=== PATIENT | female | born 1950 | race Caucasian/White ===

== ENCOUNTER 2017-12-20 11:43 | Emergency (ER) | payer MEDICARE, OTHER ==
[2017-12-20 11:55] VITALS: BP 145/54
--- NOTE | 2017-12-20 12:11 | UC ---
Shortness of Breath HPI - HPI Summary HPI Summary: PATIENT ARRIVES COMPLAINING OF INCREASING SHORTNESS OF BREATH AND WHEEZE OVER THE PAST 4 DAYS. SYMPTOMS STARTED ABOUT A WEEK AGO. SHE SAW HER PCP AND WAS PRESCRIBED AMOXICILLIN AND PREDNISONE WHICH SHE HAS BEEN TAKING FOR THE PAST 4 DAYS. TODAY SHE STATES HER SYMPTOMS ARE MUCH WORSE. SHE HAS A HISTORY OF COPD BUT DOES NOT HAVE HOME OXYGEN. STATES HER BASELINE O2 SAT IS ABOUT 94%. SHE ARRIVES TODAY WITH AN O2 SAT OF 85% ON ROOM AIR. SHE IS BREATHING HEAVILY AND IS PRESSURED TO SPEAK FULL SENTENCES. SHE HAS SOME CHEST HEAVINESS BUT DENIES CHEST PAIN, NAUSEA OR FEVER. - History of Current Complaint Chief Complaint: UCRespiratory Stated Complaint: SOB Time Seen by Provider: 12/20/17 11:44 Hx Obtained From: Patient Onset/Duration: Gradual Onset, Lasting Days, Still Present Timing: Constant Current Severity: Moderate Dyspnea At: Rest Aggrevating Factors: Nothing Alleviating Factors: Nothing Associated Signs & Symptoms: Positive: Cough (Productive), Wheezing. Negative: Fever, Chills, Diaphoresis, Nasal Congestion - Allergy/Home Medications Allergies/Adverse Reactions: Allergies Allergy/AdvReac Type Severity Reaction Status Date / Time Sulfa (Sulfonamide Allergy Intermediate Swelling Verified 12/20/17 11:55 Antibiotics) Home Medications: Home Medications Amoxicillin 1 tab PO BID 12/20/17 [History Confirmed 12/20/17] Atorvastatin* [Lipitor 20 MG*] 1 tab PO DAILY 12/20/17 [History Confirmed ] predniSONE TAB* [Deltasone TAB*] 30 mg PO DAILY 12/20/17 [History Confirmed 04/01] PMH/Surg Hx/FS Hx/Imm Hx Endocrine History: Diabetes Respiratory History: COPD - Surgical History Surgical History: Yes Surgery Procedure, Year, and Place: Tonsillectomy (1961) tympanoplasty with - Family History Known Family History: Negative: Hypertension - Social History Alcohol Use: Rare Substance Use Type: None Smoking Status (MU): Heavy Every Day Tobacco Smoker - Immunization History Most Recent Tetanus Shot: UNK Review of Systems Constitutional: Negative Respiratory: Shortness Of Breath, Cough, Other - WHEEZE Cardiovascular: Negative Gastrointestinal: Negative All Other Systems Reviewed And Are Negative: Yes Physical Exam Triage Information Reviewed: Yes Appearance: No Pain Distress, Well-Nourished, Ill-Appearing - BREATHING HEAVILY Vital Signs: Initial Vital Signs Temp 98.2 F 12/20/17 11:45 Pulse 66 12/20/17 11:45 Resp 32 12/20/17 11:45 BP 145/54 12/20/17 11:45 Pulse Ox 95 12/20/17 11:45 Vital Signs Reviewed: Yes Eyes: Positive: Conjunctiva Clear ENT: Positive: Hearing grossly normal Neck: Positive: Supple, Nontender, No Lymphadenopathy Respiratory: Positive: Decreased breath sounds, Accessory muscle use - BREATHING HEAVILY. PRESSURED SPEECH, Wheezing - DIFFUSE. Negative: Respiratory distress Cardiovascular Exam: Normal Abdomen Description: Positive: Soft Musculoskeletal: Positive: No Edema Neurological: Positive: Alert Psychological: Positive: Age Appropriate Behavior Skin: Negative: rashes Shortness of Breath Dx - Course Course Of Treatment: O2 SAT 85% ON ARRIVAL. IMPROVED TO 92% ON 2L BY NC. 95% ON 4L. PT OFFERED TRANSPORT BY AMBULANCE BUT DECLINES. ADVISED THAT BY NOT TRAVELING IN A MONITORED SETTING SHE COULD BE RISKING WORSENING OF HER CONDITION THAT COULD POSE A THREAT TO HER LIFE, HEALTH AND MEDICAL SAFETY. SHE VERBALIZES UNDERSTANDING AND CONTINUES TO DECLINE AMBULANCE TRANSFER. SIGNED OUT AMA. - Differential Dx/Diagnosis Provider Diagnoses: 1. HYPOXIA. 2. COPD EXACERBATION Discharge - Sign-Out/Discharge Documenting (check all that apply): Discharge/Admit/Transfer - Discharge Plan Condition: Guarded Disposition: AGAINST MEDICAL ADVICE Patient Education Materials: COPD (Chronic Obstructive Pulmonary Disease) (ED) , Hypoxia (ED) Referrals: Taylor Smith [Primary Care Provider] - As Soon As Possible Additional Instructions: YOU ARE SIGNING OUT AGAINST MEDICAL ADVICE. I STRONGLY RECOMMEND YOU GO DIRECTLY TO THE [facility] ED FROM HERE FOR FURTHER EVALUATION. YOU HAVE DECLINED AMBULANCE TRANSFER. BE ADVISED THAT BY NOT TRAVELING IN A MONITORED SETTING YOU COULD BE RISKING WORSENING OF YOUR CONDITION THAT COULD POSE A THREAT TO YOUR LIFE, HEALTH AND MEDICAL SAFETY. CONCERN FOR RESPIRATORY DISTRESS/FAILURE, CARDIAC ARREST, /DISABILITY. - Billing Disposition and Condition Condition: GUARDED Disposition: AMA
== END 2017-12-20 12:05 | disposition left against medical advice (07) ==
LOC: UCEAST 11:43
DX: J44.1 Chronic obstructive pulmonary disease with (acute) exacerbation (principal); R09.02 Hypoxemia; E11.9 Type 2 diabetes mellitus without complications; Z79.84 Long term (current) use of oral hypoglycemic drugs; Z88.2 Allergy status to sulfonamides; F17.210 Nicotine dependence, cigarettes, uncomplicated
CPT/HCPCS: 99202; G0463

== ENCOUNTER 2017-12-20 12:32 | Inpatient (IN) | payer MEDICARE, OTHER ==
[2017-12-20] MEDS ORDERED: NS 0.9% 1000 ML*IV.FLUID IV ONE (12:45)
[2017-12-20] MEDS ORDERED: Albuterol/Ipratropium NEB.SOL* Albuterol 2.5 MG/Ipratropium 0.5 MG 3 ML INH ONE (12:46)
[2017-12-20] MEDS ORDERED: methylPREDNISolone 125 MG* 2 ML VIAL IV ONE (13:21)
[2017-12-20] MEDS ORDERED: Azithromycin IV(*) 500 MG in NS 0.9% 250 ML* 250 ML IVPB ONE (13:21)
[2017-12-20] MEDS ORDERED: cefTRIAXone(*) 1 GM in NS 0.9% 50 ML* 50 ML IVPB ONE (13:21)
[2017-12-20 13:24] LABS: ABS Basophils 0 10^3/ul (0-0.2); ABS Eosinophils 0 10^3/ul (0-0.6); ABS Lymphocytes 0.8 10^3/ul (1.0-4.8); ABS Monocytes 0.2 10^3/ul (0-0.8); ABS Neutrophils 8.2 10^3/ul (1.5-7.7); ABS Nucleated RBC 0 10^3/ul; Eosinophil % 0 % (0-6); Hematocrit 41 % (35-47); Hemoglobin 14.2 g/dl (12.0-16.0); Lymphocyte % 9.1 % (25-47); Mean Corpuscular HGB Conc 34 g/dl (31-36); Mean Corpuscular Hemoglobin 33 pg (27-31); Mean Corpuscular Volume 94 fL (80-97); Mean Platelet Volume 9.4 um3 (7.4-10.4); Nucleated Red Blood Cells % 0; Platelet Count 173 10^3/ul (150-450); Red Blood Count 4.36 10^6/ul (4.0-5.4); Red Cell Distribution Width 15 % (10.5-15); White Blood Count 9.3 10^3/ul (3.5-10.8)
--- NOTE | 2017-12-20 13:27 | RAD ---
INDICATION: Shortness of breath. COMPARISON: None. TECHNIQUE: Single AP portable view of the chest was obtained. FINDINGS: Image quality is compromised due to the relative inferiority of a portable chest x-ray. The heart and mediastinum exhibit normal size and contour. There is a mild degree of calcification overlying the arch of the aorta. The lungs are grossly clear. There is no evidence of a large pleural effusion. Visualized bones are normal for the patient's age. IMPRESSION: No radiographic evidence for acute cardiopulmonary abnormality on this portable chest x-ray.
[2017-12-20] MEDS ORDERED: NS 0.9% 1000 ML* 1,000 ML IV ONE (13:29)
[2017-12-20 13:32] LABS: INR 0.93 (0.77-1.02)
[2017-12-20 13:36] LABS: EGFR Non-African American 82.4 (>60)
--- NOTE | 2017-12-20 15:43 | ED ---
Corbin Hobson Stephanie, scribed for Dhiraj Dee MD on 12/20/17 at 1322 . Shortness of Breath - HPI Summary HPI Summary: The pt is a 67 y/o F presenting to the ED with c/o SOB that began 12/15/17. Symptoms include cough, ear congestion and wheezing. She denies LE edema, calf pain and CP. The pt was sent from urgent care with O2 at 82%. She is on day 4 of being treated for URI possible pneumonia with Amoxicillin 875mg and prednisone taper on day 4. Pt does not wear oxygen at home. - History of Current Complaint Chief Complaint: EDShortnessOfBreath Time Seen by Provider: 12/20/17 12:45 Hx Obtained From: Patient Onset/Duration: Gradual Onset, Lasting Days - 5, Still Present Timing: Constant Current Severity: Moderate Aggrevating Factors: Nothing Alleviating Factors: Nothing Associated Signs & Symptoms: Cough (Productive), Wheezing, Nasal Congestion - Allergy/Home Medications Allergies/Adverse Reactions: Allergies Allergy/AdvReac Type Severity Reaction Status Date / Time Sulfa (Sulfonamide Allergy Intermediate Swelling Verified 12/20/17 11:55 Antibiotics) Home Medications: Home Medications Amoxicillin PO (*) [Amoxicillin 875 MG (*)] 875 mg PO BID 12/20/17 [History Confirmed 12/20/17] Aspirin EC TAB* [Ecotrin EC Low Dose 81 MG*] 81 mg PO DAILY 12/20/17 [History Confirmed 12/20/17] Atorvastatin* [Lipitor*] 20 mg PO DAILY 12/20/17 [History Confirmed 12/20/17] Gabapentin CAP(*) [Neurontin 100 mg CAP(*)] 100 - 200 mg PO BEDTIME 12/20/17 [ History Confirmed 12/20/17] metFORMIN* [Glucophage 500 MG TAB *] 500 mg PO BID 12/20/17 [History Confirmed 12/20/17] predniSONE TAB* [Deltasone TAB*] 30 mg PO DAILY 12/20/17 [History Confirmed 04/01] PMH/Surg Hx/FS Hx/Imm Hx Endocrine/Hematology History: Reports: Hx Diabetes Denies: Hx Thyroid Disease Cardiovascular History: Reports: Hx Hypercholesterolemia Denies: Hx Hypertension, Hx Peripheral Vascular Disease Respiratory History: Reports: Hx Chronic Obstructive Pulmonary Disease (COPD) Musculoskeletal History: Denies: Hx Arthritis, Hx Osteoporosis Sensory History: Denies: Hx Cataracts, Hx Contacts or Glasses, Hx Glaucoma Opthamlomology History: Denies: Hx Cataracts, Hx Contacts or Glasses, Hx Glaucoma Neurological History: Denies: Hx Headaches, Hx Seizures, Hx Transient Ischemic Attacks (TIA) Psychiatric History: Denies: Hx Anxiety, Hx Depression - Surgical History Surgery Procedure, Year, and Place: Tonsillectomy (1961) tympanoplasty with Infectious Disease History: No Infectious Disease History: Denies: Traveled Outside the [place] in Last 30 Days - Family History Known Family History: Negative: Hypertension - Social History Occupation: Employed Part-time Lives: With Family Alcohol Use: Rare Hx Substance Use: No Substance Use Type: Reports: None Hx Tobacco Use: Yes - 1 pack a day Smoking Status (MU): Heavy Every Day Tobacco Smoker Have You Smoked in the Last Year: Yes Review of Systems Negative: Fever Positive: Other - ear congestion Negative: Chest Pain Positive: Shortness Of Breath, Cough, Other - wheezing Musculoskeletal: Negative - calf pain Negative: Edema - LE All Other Systems Reviewed And Are Negative: Yes Physical Exam - Summary Physical Exam Summary: General: well-appearing, no pain distress Skin: warm, color reflects adequate perfusion, dry Head: normal Eyes: EOMI, STEPH ENT: normal Neck: supple, nontender Respiratory: bilateral rhonchi, Mild respiratory distress, breath sounds present Cardiovascular: RRR Abdomen: soft, nontender Bowel: present Musculoskeletal: normal, strength/ROM intact Neurological: normal, sensory/motor intact, A&O x3 Psychological: affect/mood appropriate Triage Information Reviewed: Yes Vital Signs On Initial Exam: Initial Vitals Temp Pulse Resp BP Pulse Ox 98.3 F 69 24 131/58 82 12/20/17 12:41 12/20/17 12:41 12/20/17 12:41 12/20/17 12:41 12/20/17 12:41 Vital Signs Reviewed: Yes Diagnostics - Vital Signs Vital Signs Temp Pulse Resp BP Pulse Ox 12/20/17 12:55 71 10 98 12/20/17 12:41 98.3 F 69 24 131/58 82 - Laboratory Lab Results: Lab Results 12/20/17 12/20/17 12/20/17 Range/Units 13:04 13:04 13:04 WBC 9.3 (3.5-10.8) 10^3/ul RBC 4.36 (4.0-5.4) 10^6/ul Hgb 14.2 (12.0-16.0) g/dl Hct 41 (35-47) % MCV 94 (80-97) fL MCH 33 H (27-31) pg MCHC 34 (31-36) g/dl RDW 15 (10.5-15) % Plt Count 173 (150-450) 10^3/ul MPV 9.4 (7.4-10.4) um3 Neut % (Auto) 88.6 H (38-83) % Lymph % (Auto) 9.1 L (25-47) % [place] % (Auto) 2.1 (0-7) % Eos % (Auto) 0 (0-6) % Baso % (Auto) 0.2 (0-2) % Absolute Neuts (auto) 8.2 H (1.5-7.7) 10^3/ul Absolute Lymphs (auto) 0.8 L (1.0-4.8) 10^3/ul Absolute Monos (auto) 0.2 (0-0.8) 10^3/ul Absolute Eos (auto) 0 (0-0.6) 10^3/ul Absolute Basos (auto) 0 (0-0.2) 10^3/ul Absolute Nucleated RBC 0 10^3/ul Nucleated RBC % 0 INR (Anticoag Therapy) 0.93 (0.77-1.02) APTT 34.7 (26.0-36.3) seconds D-Dimer, Quantitative < 200 (Less Than 230) ng/mL VBG pH (7.33-7.43) VBG pCO2 (41-51) mmHg VBG pO2 (35-45) mmHg VBG HCO3 (24-28) mmol/L VBG O2 Saturation (70-80) % VBG Base Excess (0-4) Sodium 144 (139-145) mmol/L Potassium 3.8 (3.5-5.0) mmol/L Chloride 107 (101-111) mmol/L Carbon Dioxide 28 (22-32) mmol/L Anion Gap 9 (2-11) mmol/L BUN 11 (6-24) mg/dL Creatinine 0.71 (0.51-0.95) mg/dL Est GFR ( Amer) 105.9 (>60) Est GFR (Non-Af Amer) 82.4 (>60) BUN/Creatinine Ratio 15.5 (8-20) Glucose 123 H (70-100) mg/dL Lactic Acid (0.5-2.0) mmol/L Calcium 9.2 (8.6-10.3) mg/dL Magnesium 1.8 L (1.9-2.7) mg/dL Total Bilirubin 0.60 (0.2-1.0) mg/dL AST 19 (13-39) U/L ALT 20 (7-52) U/L Alkaline Phosphatase 70 (34-104) U/L Troponin I 0.00 (<0.04) ng/mL C-Reactive Protein 3.99 (< 5.00) mg/L B-Natriuretic Peptide ( - 100) pg/mL Total Protein 7.0 (6.4-8.9) g/dL Albumin 4.2 (3.2-5.2) g/dL Globulin 2.8 (2-4) g/dL Albumin/Globulin Ratio 1.5 (1-3) Lipase 12 (11.0-82.0) U/L Procalcitonin (<0.6) ng/mL 12/20/17 12/20/17 12/20/17 Range/Units 13:04 13:04 13:04 WBC (3.5-10.8) 10^3/ul RBC (4.0-5.4) 10^6/ul Hgb (12.0-16.0) g/dl Hct (35-47) % MCV (80-97) fL MCH (27-31) pg MCHC (31-36) g/dl RDW (10.5-15) % Plt Count (150-450) 10^3/ul MPV (7.4-10.4) um3 Neut % (Auto) (38-83) % Lymph % (Auto) (25-47) % Gree[place] % (Auto) (0-7) % Eos % (Auto) (0-6) % Baso % (Auto) (0-2) % Absolute Neuts (auto) (1.5-7.7) 10^3/ul Absolute Lymphs (auto) (1.0-4.8) 10^3/ul Absolute Monos (auto) (0-0.8) 10^3/ul Absolute Eos (auto) (0-0.6) 10^3/ul Absolute Basos (auto) (0-0.2) 10^3/ul Absolute Nucleated RBC 10^3/ul Nucleated RBC % INR (Anticoag Therapy) (0.77-1.02) APTT (26.0-36.3) seconds D-Dimer, Quantitative (Less Than 230) ng/mL VBG pH (7.33-7.43) VBG pCO2 (41-51) mmHg VBG pO2 (35-45) mmHg VBG HCO3 (24-28) mmol/L VBG O2 Saturation (70-80) % VBG Base Excess (0-4) Sodium (139-145) mmol/L Potassium (3.5-5.0) mmol/L Chloride (101-111) mmol/L Carbon Dioxide (22-32) mmol/L Anion Gap (2-11) mmol/L BUN (6-24) mg/dL Creatinine (0.51-0.95) mg/dL Est GFR ( Amer) (>60) Est GFR (Non-Af Amer) (>60) BUN/Creatinine Ratio (8-20) Glucose (70-100) mg/dL Lactic Acid 1.3 (0.5-2.0) mmol/L Calcium (8.6-10.3) mg/dL Magnesium (1.9-2.7) mg/dL Total Bilirubin (0.2-1.0) mg/dL AST (13-39) U/L ALT (7-52) U/L Alkaline Phosphatase (34-104) U/L Troponin I (<0.04) ng/mL C-Reactive Protein (< 5.00) mg/L B-Natriuretic Peptide 82 ( - 100) pg/mL Total Protein (6.4-8.9) g/dL Albumin (3.2-5.2) g/dL Globulin (2-4) g/dL Albumin/Globulin Ratio (1-3) Lipase (11.0-82.0) U/L Procalcitonin < 0.1 (<0.6) ng/mL 12/20/17 Range/Units 13:07 WBC (3.5-10.8) 10^3/ul RBC (4.0-5.4) 10^6/ul Hgb (12.0-16.0) g/dl Hct (35-47) % MCV (80-97) fL MCH (27-31) pg MCHC (31-36) g/dl RDW (10.5-15) % Plt Count (150-450) 10^3/ul MPV (7.4-10.4) um3 Neut % (Auto) (38-83) % Lymph % (Auto) (25-47) % Gree[place] % (Auto) (0-7) % Eos % (Auto) (0-6) % Baso % (Auto) (0-2) % Absolute Neuts (auto) (1.5-7.7) 10^3/ul Absolute Lymphs (auto) (1.0-4.8) 10^3/ul Absolute Monos (auto) (0-0.8) 10^3/ul Absolute Eos (auto) (0-0.6) 10^3/ul Absolute Basos (auto) (0-0.2) 10^3/ul Absolute Nucleated RBC 10^3/ul Nucleated RBC % INR (Anticoag Therapy) (0.77-1.02) APTT (26.0-36.3) seconds D-Dimer, Quantitative (Less Than 230) ng/mL VBG pH 7.35 (7.33-7.43) VBG pCO2 52 H (41-51) mmHg VBG pO2 26 L (35-45) mmHg VBG HCO3 25.2 (24-28) mmol/L VBG O2 Saturation 57.8 L (70-80) % VBG Base Excess 2.0 (0-4) Sodium (139-145) mmol/L Potassium (3.5-5.0) mmol/L Chloride (101-111) mmol/L Carbon Dioxide (22-32) mmol/L Anion Gap (2-11) mmol/L BUN (6-24) mg/dL Creatinine (0.51-0.95) mg/dL Est GFR ( Amer) (>60) Est GFR (Non-Af Amer) (>60) BUN/Creatinine Ratio (8-20) Glucose (70-100) mg/dL Lactic Acid (0.5-2.0) mmol/L Calcium (8.6-10.3) mg/dL Magnesium (1.9-2.7) mg/dL Total Bilirubin (0.2-1.0) mg/dL AST (13-39) U/L ALT (7-52) U/L Alkaline Phosphatase (34-104) U/L Troponin I (<0.04) ng/mL C-Reactive Protein (< 5.00) mg/L B-Natriuretic Peptide ( - 100) pg/mL Total Protein (6.4-8.9) g/dL Albumin (3.2-5.2) g/dL Globulin (2-4) g/dL Albumin/Globulin Ratio (1-3) Lipase (11.0-82.0) U/L Procalcitonin (<0.6) ng/mL Result Diagrams: 12/20/17 13:04 12/20/17 13:04 Lab Statement: Any lab studies that have been ordered have been reviewed, and results considered in the medical decision making process. - Radiology CXR Xray Interpretation: No Acute Changes Radiology Interpretation Completed By: Radiologist - No radiographic evidence for acute cardiopulmonary abnormality on this portable chest x-ray. ED physician has reviewed this report. - EKG 12:53 Cardiac Rate: NL EKG Rhythm: Sinus Rhythm - 64 BPM EKG Interpretation: depressed ST elevations in V5, V6 Re-Evaluation - Re-Evaluation First Eval Re-Evaluation Time: 14:42 Change: Unchanged - ED physician discussed plan of admission with the pt and the pt understands. Course/Dx - Course Course Of Treatment: PATIENT STILL REQUIRING SUPPLEMENTAL O2 IN ED. ADMIT HOSPITALIST. - Diagnoses Provider Diagnoses: COPD (chronic obstructive pulmonary disease), Bronchitis, Hypoxia - Physician Notifications Discussed Care of Patient With: Alma Rosa Walker Time Discussed With Above Provider: 14:34 Instructed by Provider To: Admit As Inpatient Discharge - Sign-Out/Discharge Documenting (check all that apply): Discharge/Admit/Transfer - Discharge Plan Condition: Stable Disposition: ADMITTED TO [facility] Referrals: Taylor Smith [Primary Care Provider] - - Billing Disposition and Condition Condition: STABLE Disposition: [facility] The documentation as recorded by the Corbin ross Stephanie accurately reflects the service I personally performed and the decisions made by , Dhiraj Dee MD.
[2017-12-20] MEDS ORDERED: Al Hydrox/Mg Hydrox/Simet LIQ* 30 ML UDC PO PRN (16:14)
[2017-12-20] MEDS ORDERED: Dextrose 50% Syringe 50 ML* 25 GM/50 ML SYRINGE IV PUSH PRN (16:32)
[2017-12-20] MEDS ORDERED: Mouth Piece, Nicotine* 1 EACH CARTRIDGE INH PRN (16:40)
[2017-12-20] MEDS: Insulin LISPRO* 1 UNITS UNIT SUBCUT SCH ×2 (18:11→20:19)
[2017-12-20] MEDS: Gabapentin CAP(*) 100 MG PO SCH (20:18)
[2017-12-20] MEDS: Nicotine Inhaler* 10 MG AMP INH PRN (20:19)
[2017-12-20] MEDS: Docusate CAP* 100 MG PO SCH (20:20)
--- NOTE | 2017-12-20 21:57 | HP ---
CC: Taylor Smith NP * HISTORY AND PHYSICAL: DATE OF ADMISSION: 12/20/17 PRIMARY CARE PROVIDER: Taylor Smith NP CHIEF COMPLAINT: Shortness of breath. HISTORY OF PRESENT ILLNESS: Talya Quiles is a 67-year-old female with history of COPD diagnosed by her primary care provider 2 years ago, who stated that she has been having problems with sore throat and cough for the past week. Four days ago, she went to see her primary care provider and was given amoxicillin and prednisone. Despite that, she continued to be short of breath and she came into the hospital today with oxygen saturation at 82% on room air. She is going to be admitted with a diagnosis of acute hypoxemic respiratory failure and COPD exacerbation. PAST MEDICAL HISTORY: 1. COPD, not oxygen dependent. 2. Dyslipidemia. 3. History of tonsillectomy. 4. History of tympanoplasty. 5. Diabetes type 2. CURRENT MEDICATIONS: Include: 1. Prednisone 30 mg daily. 2. Amoxicillin 875 mg b.i.d. 3. Lipitor 20 mg daily. 4. Aspirin 81 mg daily. 5. Metformin 500 mg b.i.d. 6. Gabapentin 200 mg at bedtime. ALLERGIES: SULFA. FAMILY HISTORY: Reviewed and noncontributory. SOCIAL HISTORY: The patient is a current smoker. She smokes a pack per day and she started when she was 17 years old. She denies any drug use and alcohol use. She is single. 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 As a surrogate decision maker, she names her son, Dakota Quiles. REVIEW OF SYSTEMS: Positive for sore throat. Positive for nonproductive cough. Positive for sore muscles on the left side of her abdomen from coughing. Positive for shortness of breath and wheezing. Negative for fevers. All the remaining 12 systems were reviewed with the patient and were otherwise negative. PHYSICAL EXAMINATION GENERAL: The patient is a very pleasant 67-year-old female, who is in no acute distress. Alert, awake, and oriented x3. VITAL SIGNS: Blood pressure of 143/65, heart rate of 64 and regular, respiratory rate 21, oxygen saturation 92% on 2 L oxygen nasal cannula, temperature of 98.3. HEENT: Head: Atraumatic, normocephalic. Eyes: Pupils are equal, reactive to light and accommodation. Oropharynx clear. Mucosa moist. NECK: Supple. No JVD. No bruits bilaterally. RESPIRATORY: Distant breath sounds bilaterally in the upper lung weaver. Coarse rhonchi and wheezes about the lower and mid lung weaver. CARDIOVASCULAR: Regular rate and rhythm. No murmur. ABDOMEN: Soft, nontender. Bowel sounds are present in all 4 quadrants. EXTREMITIES: There is no edema. Pulses are +2 bilaterally. No clubbing or cyanosis. NEURO EVALUATION: Speech is clear. Cranial nerves II through XII are grossly intact. Motor strength is 5/5 bilaterally. DIAGNOSTIC STUDIES/LAB DATA: White blood cell count of 9.3, hemoglobin 14.2, hematocrit 41, and platelets 173. D-dimer below 200. ABG showed pH of 7.35, pCO2 of 52, pO2 of 26, that was venous blood gas, and bicarb of 25. Sodium was 144, potassium 3.8, chloride 107, carbon dioxide 28, BUN 11, creatinine 0.71. Liver function tests were unremarkable. Procalcitonin level below 0.1. Brain natriuretic peptide was 82. C-reactive protein was 3.99. Troponin 0. Portable chest x-ray, impression: "No radiographic evidence for acute cardiopulmonary abnormality on this portable chest x-ray." The patient's EKG showed normal sinus rhythm with a heart rate of 64 beats per minute with left anterior fascicular block. ASSESSMENT AND PLAN: 1. Acute hypoxemic respiratory failure in a patient due to chronic obstructive pulmonary disease exacerbation. The patient is going to be continued on nebulizers on a p.r.n. basis. I will discontinue the patient's antibiotics since her procalcitonin level and inflammatory markers are negative. She is going to be continued on Solu-Medrol and observation overnight. I will ask nursing to evaluate the patient's oxygenation and saturations and to qualify for oxygen, although I believe the patient's venous blood gas may be a good indicator of significant hypoxemia and qualification for oxygen at home. 2. In regards to the patient's smoking cessation, she was counseled in regards to quitting smoking. She is going to be placed on nicotine inhaler p.r.n. 3. For the patient's diabetes, the patient is going to be placed on insulin sliding scale. Her metformin is going to be held while in the hospital. 4. For DVT prophylaxis, the patient is going to be placed on heparin subcutaneously. TIME SPENT: Approximately 65 minutes were spent on admission of this patient, more than half of that time was spent [id number] with the patient during the interview and physical exam. [id number]/[facility] #: [id number] [facility]
[2017-12-20] MEDS: Heparin VIAL(*) 5000 UNITS/ML VIAL (FIVE THOUSAND) SUBCUT SCH (22:07)
[2017-12-20] MEDS: methylPREDNISolone SOD 40 MG* 1 ML VIAL IV SCH (22:08)
[2017-12-21] MEDS: Albuterol/Ipratropium NEB.SOL* Albuterol 2.5 MG/Ipratropium 0.5 MG 3 ML INH PRN ×2 (02:07→08:43)
[2017-12-21] MEDS: methylPREDNISolone SOD 40 MG* 1 ML VIAL IV SCH ×3 (05:34→20:34)
[2017-12-21] MEDS: Heparin VIAL(*) 5000 UNITS/ML VIAL (FIVE THOUSAND) SUBCUT SCH ×3 (05:34→20:34)
[2017-12-21] MEDS: Insulin LISPRO* 1 UNITS UNIT SUBCUT SCH ×4 (09:07→20:34)
[2017-12-21] MEDS: Aspirin EC TAB* 81 MG TAB.EC PO SCH (09:07)
[2017-12-21] MEDS: Atorvastatin* 20 MG TAB PO SCH (09:07)
[2017-12-21] MEDS: Docusate CAP* 100 MG PO SCH ×2 (09:08→20:25)
[2017-12-21] MEDS: Acetaminophen TAB* 325 MG PO PRN ×2 (09:18→23:30)
--- NOTE | 2017-12-21 13:25 | PN ---
Subjective Date of Service: 12/21/17 Interval History: Pt is still coughing a lot , with increased WOB when going to bathroom. cough is non productive. Also c/o sore throat. Objective Active Medications: Acetaminophen (Tylenol Tab*) 650 mg PO Q4H PRN PRN Reason: FEVER/PAIN Last Admin: 12/21/17 09:18 Dose: 650 mg Al Hydrox/Mg Hydrox/Simethicone (Maalox Plus*) 30 ml PO Q6H PRN PRN Reason: INDIGESTION Albuterol/Ipratropium (Duoneb (Albuterol 2.5 Mg/Ipratropium 0.5 Mg)) 1 neb INH [id number] AWAKE PRN PRN Reason: sob/wheexing Last Admin: 12/21/17 08:43 Dose: 1 neb Aspirin (Aspirin Ec Tab*) 81 mg PO DAILY [facility] Last Admin: 12/21/17 09:07 Dose: 81 mg Atorvastatin Calcium (Lipitor*) 20 mg PO DAILY [facility] Last Admin: 12/21/17 09:07 Dose: 20 mg Device (Nicotine Mouth Piece*) 1 each INH .USE WITH NICOTROL PRN PRN Reason: CRAVING Last Admin: 12/20/17 20:18 Dose: 1 each Dextrose (D50w Syringe 50 Ml*) 12.5 gm IV PUSH .FOR FS < 60 - SS PRN PRN Reason: FS < 60 Docusate Sodium (Colace Cap*) 100 mg PO BID [facility] Last Admin: 12/21/17 09:08 Dose: Not Given Gabapentin (Neurontin Cap(*)) 200 mg PO BEDTIME [facility] Last Admin: 12/20/17 20:18 Dose: 200 mg Heparin Sodium (Porcine) (Heparin Vial(*)) 5,000 units SUBCUT Q8HR [facility] Last Admin: 12/21/17 13:11 Dose: 5,000 units Insulin Human Lispro (Humalog*) 0 units SUBCUT ACHS [facility] PRN Reason: Protocol Last Admin: 12/21/17 13:08 Dose: 1 units Methylprednisolone Sodium Succinate (Solu-Medrol 40 Mg) 40 mg IV Q8H [facility] Last Admin: 12/21/17 13:09 Dose: 40 mg Nicotine (Nicotine Inhaler*) 10 mg INH Q2H PRN PRN Reason: CRAVING Last Admin: 12/20/17 20:19 Dose: 10 mg Vital Signs - 8 hr 12/21/17 12/21/17 12/21/17 07:42 08:01 08:44 Temperature 98.3 F Pulse Rate 57 57 Respiratory 18 19 Rate Blood Pressure 137/55 (mmHg) O2 Sat by Pulse 92 92 97 Oximetry 12/21/17 11:14 Temperature 97.9 F Pulse Rate 57 Respiratory 15 Rate Blood Pressure 142/55 (mmHg) O2 Sat by Pulse 94 Oximetry Oxygen Devices in Use Now: Nasal Cannula Appearance: 67 yo f in nAD, AAOx3 Eyes: No Scleral Icterus, PERRLA Ears/Nose/Mouth/Throat: NL Teeth, Lips, Gums, Mucous Membranes Moist, - Neck: NL Appearance and Movements; NL JVP, Trachea Midline Respiratory: Symmetrical Chest Expansion and Respiratory Effort, - - coarse rhonchi and mid lung wheezes b/l Cardiovascular: NL Sounds; No Murmurs; No JVD Abdominal: NL Sounds; No Tenderness; No Distention Lymphatic: No Cervical Adenopathy Extremities: No Edema, No Clubbing, Cyanosis Skin: No Rash or Ulcers, No Nodules or Sclerosis Neurological: Alert and Oriented x 3, NL Muscle Strength and Tone Result Diagrams: 12/20/17 13:04 12/20/17 13:04 Additional Lab and Data: Lab Results 12/20/17 12/20/17 12/20/17 Range/Units 13:04 13:04 13:04 WBC 9.3 (3.5-10.8) 10^3/ul RBC 4.36 (4.0-5.4) 10^6/ul Hgb 14.2 (12.0-16.0) g/dl Hct 41 (35-47) % MCV 94 (80-97) fL MCH 33 H (27-31) pg MCHC 34 (31-36) g/dl RDW 15 (10.5-15) % Plt Count 173 (150-450) 10^3/ul MPV 9.4 (7.4-10.4) um3 Neut % (Auto) 88.6 H (38-83) % Lymph % (Auto) 9.1 L (25-47) % [place] % (Auto) 2.1 (0-7) % Eos % (Auto) 0 (0-6) % Baso % (Auto) 0.2 (0-2) % Absolute Neuts (auto) 8.2 H (1.5-7.7) 10^3/ul Absolute Lymphs (auto) 0.8 L (1.0-4.8) 10^3/ul Absolute Monos (auto) 0.2 (0-0.8) 10^3/ul Absolute Eos (auto) 0 (0-0.6) 10^3/ul Absolute Basos (auto) 0 (0-0.2) 10^3/ul Absolute Nucleated RBC 0 10^3/ul Nucleated RBC % 0 INR (Anticoag Therapy) 0.93 (0.77-1.02) APTT 34.7 (26.0-36.3) seconds D-Dimer, Quantitative < 200 (Less Than 230) ng/mL VBG pH (7.33-7.43) VBG pCO2 (41-51) mmHg VBG pO2 (35-45) mmHg VBG HCO3 (24-28) mmol/L VBG O2 Saturation (70-80) % VBG Base Excess (0-4) Sodium 144 (139-145) mmol/L Potassium 3.8 (3.5-5.0) mmol/L Chloride 107 (101-111) mmol/L Carbon Dioxide 28 (22-32) mmol/L Anion Gap 9 (2-11) mmol/L BUN 11 (6-24) mg/dL Creatinine 0.71 (0.51-0.95) mg/dL Est GFR ( Amer) 105.9 (>60) Est GFR (Non-Af Amer) 82.4 (>60) BUN/Creatinine Ratio 15.5 (8-20) Glucose 123 H (70-100) mg/dL Lactic Acid (0.5-2.0) mmol/L Calcium 9.2 (8.6-10.3) mg/dL Magnesium 1.8 L (1.9-2.7) mg/dL Total Bilirubin 0.60 (0.2-1.0) mg/dL AST 19 (13-39) U/L ALT 20 (7-52) U/L Alkaline Phosphatase 70 (34-104) U/L Troponin I 0.00 (<0.04) ng/mL C-Reactive Protein 3.99 (< 5.00) mg/L B-Natriuretic Peptide ( - 100) pg/mL Total Protein 7.0 (6.4-8.9) g/dL Albumin 4.2 (3.2-5.2) g/dL Globulin 2.8 (2-4) g/dL Albumin/Globulin Ratio 1.5 (1-3) Lipase 12 (11.0-82.0) U/L Procalcitonin (<0.6) ng/mL 12/20/17 12/20/17 12/20/17 Range/Units 13:04 13:04 13:04 WBC (3.5-10.8) 10^3/ul RBC (4.0-5.4) 10^6/ul Hgb (12.0-16.0) g/dl Hct (35-47) % MCV (80-97) fL MCH (27-31) pg MCHC (31-36) g/dl RDW (10.5-15) % Plt Count (150-450) 10^3/ul MPV (7.4-10.4) um3 Neut % (Auto) (38-83) % Lymph % (Auto) (25-47) % [place] % (Auto) (0-7) % Eos % (Auto) (0-6) % Baso % (Auto) (0-2) % Absolute Neuts (auto) (1.5-7.7) 10^3/ul Absolute Lymphs (auto) (1.0-4.8) 10^3/ul Absolute Monos (auto) (0-0.8) 10^3/ul Absolute Eos (auto) (0-0.6) 10^3/ul Absolute Basos (auto) (0-0.2) 10^3/ul Absolute Nucleated RBC 10^3/ul Nucleated RBC % INR (Anticoag Therapy) (0.77-1.02) APTT (26.0-36.3) seconds D-Dimer, Quantitative (Less Than 230) ng/mL VBG pH (7.33-7.43) VBG pCO2 (41-51) mmHg VBG pO2 (35-45) mmHg VBG HCO3 (24-28) mmol/L VBG O2 Saturation (70-80) % VBG Base Excess (0-4) Sodium (139-145) mmol/L Potassium (3.5-5.0) mmol/L Chloride (101-111) mmol/L Carbon Dioxide (22-32) mmol/L Anion Gap (2-11) mmol/L BUN (6-24) mg/dL Creatinine (0.51-0.95) mg/dL Est GFR ( Amer) (>60) Est GFR (Non-Af Amer) (>60) BUN/Creatinine Ratio (8-20) Glucose (70-100) mg/dL Lactic Acid 1.3 (0.5-2.0) mmol/L Calcium (8.6-10.3) mg/dL Magnesium (1.9-2.7) mg/dL Total Bilirubin (0.2-1.0) mg/dL AST (13-39) U/L ALT (7-52) U/L Alkaline Phosphatase (34-104) U/L Troponin I (<0.04) ng/mL C-Reactive Protein (< 5.00) mg/L B-Natriuretic Peptide 82 ( - 100) pg/mL Total Protein (6.4-8.9) g/dL Albumin (3.2-5.2) g/dL Globulin (2-4) g/dL Albumin/Globulin Ratio (1-3) Lipase (11.0-82.0) U/L Procalcitonin < 0.1 (<0.6) ng/mL 12/20/17 Range/Units 13:07 WBC (3.5-10.8) 10^3/ul RBC (4.0-5.4) 10^6/ul Hgb (12.0-16.0) g/dl Hct (35-47) % MCV (80-97) fL MCH (27-31) pg MCHC (31-36) g/dl RDW (10.5-15) % Plt Count (150-450) 10^3/ul MPV (7.4-10.4) um3 Neut % (Auto) (38-83) % Lymph % (Auto) (25-47) % [place] % (Auto) (0-7) % Eos % (Auto) (0-6) % Baso % (Auto) (0-2) % Absolute Neuts (auto) (1.5-7.7) 10^3/ul Absolute Lymphs (auto) (1.0-4.8) 10^3/ul Absolute Monos (auto) (0-0.8) 10^3/ul Absolute Eos (auto) (0-0.6) 10^3/ul Absolute Basos (auto) (0-0.2) 10^3/ul Absolute Nucleated RBC 10^3/ul Nucleated RBC % INR (Anticoag Therapy) (0.77-1.02) APTT (26.0-36.3) seconds D-Dimer, Quantitative (Less Than 230) ng/mL VBG pH 7.35 (7.33-7.43) VBG pCO2 52 H (41-51) mmHg VBG pO2 26 L (35-45) mmHg VBG HCO3 25.2 (24-28) mmol/L VBG O2 Saturation 57.8 L (70-80) % VBG Base Excess 2.0 (0-4) Sodium (139-145) mmol/L Potassium (3.5-5.0) mmol/L Chloride (101-111) mmol/L Carbon Dioxide (22-32) mmol/L Anion Gap (2-11) mmol/L BUN (6-24) mg/dL Creatinine (0.51-0.95) mg/dL Est GFR ( Amer) (>60) Est GFR (Non-Af Amer) (>60) BUN/Creatinine Ratio (8-20) Glucose (70-100) mg/dL Lactic Acid (0.5-2.0) mmol/L Calcium (8.6-10.3) mg/dL Magnesium (1.9-2.7) mg/dL Total Bilirubin (0.2-1.0) mg/dL AST (13-39) U/L ALT (7-52) U/L Alkaline Phosphatase (34-104) U/L Troponin I (<0.04) ng/mL C-Reactive Protein (< 5.00) mg/L B-Natriuretic Peptide ( - 100) pg/mL Total Protein (6.4-8.9) g/dL Albumin (3.2-5.2) g/dL Globulin (2-4) g/dL Albumin/Globulin Ratio (1-3) Lipase (11.0-82.0) U/L Procalcitonin (<0.6) ng/mL Assess/Plan/Problems-Billing Assessment: 67 yo F with h/o DM, COPD presents with exacerbation of COPD - Patient Problems (1) COPD exacerbation Comment: Still with significant hypoxemia, increased WOB. solange cont current dose Solu Medrol. Start Azithro for anti-inflammatory properties (2) DM type 2 (diabetes mellitus, type 2) Comment: cont ISS, holding metformin. (3) DVT (deep venous thrombosis) Comment: HSQ Status and Disposition: OBV will be changed to inpatient
[2017-12-21] MEDS: Azithromycin IV(*) 500 MG in NS 0.9% 250 ML* 250 ML IVPB SCH (14:15)
[2017-12-21] MEDS: Nicotine Inhaler* 10 MG AMP INH PRN (14:19)
[2017-12-21] MEDS: Albuterol/Ipratropium NEB.SOL* Albuterol 2.5 MG/Ipratropium 0.5 MG 3 ML INH SCH (17:54)
[2017-12-21] MEDS: Gabapentin CAP(*) 100 MG PO SCH (20:34)
[2017-12-21] MEDS: guaiFENesin ER TAB 600 MG PO SCH (20:34)
[2017-12-21] MEDS ORDERED: Albuterol 2.5 MG/3 ML NEB.SOL* (0.083%) INH PRN (22:18)
[2017-12-22] MEDS: Albuterol/Ipratropium NEB.SOL* Albuterol 2.5 MG/Ipratropium 0.5 MG 3 ML INH SCH ×2 (01:54→07:53)
[2017-12-22] MEDS: methylPREDNISolone SOD 40 MG* 1 ML VIAL IV SCH (05:15)
[2017-12-22] MEDS: Benzonatate CAP* 100 MG PO PRN ×2 (05:15→20:22)
[2017-12-22] MEDS: Heparin VIAL(*) 5000 UNITS/ML VIAL (FIVE THOUSAND) SUBCUT SCH ×3 (05:17→20:22)
[2017-12-22 06:48] LABS: ABS Basophils 0 10^3/ul (0-0.2); ABS Eosinophils 0 10^3/ul (0-0.6); ABS Lymphocytes 1.1 10^3/ul (1.0-4.8); ABS Monocytes 0.3 10^3/ul (0-0.8); ABS Neutrophils 10.2 10^3/ul (1.5-7.7); ABS Nucleated RBC 0 10^3/ul; Eosinophil % 0 % (0-6); Hematocrit 38 % (35-47); Hemoglobin 12.8 g/dl (12.0-16.0); Lymphocyte % 9.6 % (25-47); Mean Corpuscular HGB Conc 34 g/dl (31-36); Mean Corpuscular Hemoglobin 32 pg (27-31); Mean Corpuscular Volume 94 fL (80-97); Mean Platelet Volume 9.6 um3 (7.4-10.4); Nucleated Red Blood Cells % 0; Platelet Count 187 10^3/ul (150-450); Red Blood Count 3.99 10^6/ul (4.0-5.4); Red Cell Distribution Width 14 % (10.5-15); White Blood Count 11.7 10^3/ul (3.5-10.8)
[2017-12-22 07:07] LABS: EGFR Non-African American 82.4 (>60)
[2017-12-22] MEDS: guaiFENesin ER TAB 600 MG PO SCH ×2 (07:32→21:15)
[2017-12-22] MEDS: Aspirin EC TAB* 81 MG TAB.EC PO SCH (07:32)
[2017-12-22] MEDS: Atorvastatin* 20 MG TAB PO SCH (07:32)
[2017-12-22] MEDS: Docusate CAP* 100 MG PO SCH ×2 (07:32→21:15)
[2017-12-22] MEDS: Insulin LISPRO* 1 UNITS UNIT SUBCUT SCH ×4 (08:49→21:17)
--- NOTE | 2017-12-22 12:02 | PN ---
Subjective Date of Service: 12/22/17 Interval History: Pt feels much better, still requiring 02 and wheezing when walking Objective Active Medications: Acetaminophen (Tylenol Tab*) 650 mg PO Q4H PRN PRN Reason: FEVER/PAIN Last Admin: 12/21/17 23:30 Dose: 650 mg Al Hydrox/Mg Hydrox/Simethicone (Maalox Plus*) 30 ml PO Q6H PRN PRN Reason: INDIGESTION Albuterol (Ventolin 2.5 Mg/3 Ml Neb.Liseth*) 2.5 mg INH Q2H PRN PRN Reason: SOB/WHEEZING Last Admin: 12/21/17 23:30 Dose: 2.5 mg Aspirin (Aspirin Ec Tab*) 81 mg PO DAILY [facility] Last Admin: 12/22/17 07:32 Dose: 81 mg Atorvastatin Calcium (Lipitor*) 20 mg PO DAILY [facility] Last Admin: 12/22/17 07:32 Dose: 20 mg Benzonatate (Tessalon Cap*) 100 mg PO BID PRN PRN Reason: COUGH Last Admin: 12/22/17 05:15 Dose: 100 mg Device (Nicotine Mouth Piece*) 1 each INH .USE WITH NICOTROL PRN PRN Reason: CRAVING Last Admin: 12/20/17 20:18 Dose: 1 each Dextrose (D50w Syringe 50 Ml*) 12.5 gm IV PUSH .FOR FS < 60 - SS PRN PRN Reason: FS < 60 Docusate Sodium (Colace Cap*) 100 mg PO BID [facility] Last Admin: 12/22/17 07:32 Dose: Not Given Gabapentin (Neurontin Cap(*)) 200 mg PO BEDTIME [facility] Last Admin: 12/21/17 20:34 Dose: 200 mg Guaifenesin (Mucinex*) 1,200 mg PO BID [facility] Last Admin: 12/22/17 07:32 Dose: 1,200 mg Heparin Sodium (Porcine) (Heparin Vial(*)) 5,000 units SUBCUT Q8HR [facility] Last Admin: 12/22/17 05:17 Dose: 5,000 units Azithromycin 500 mg/ Sodium (Chloride) 250 mls @ 250 mls/hr IVPB Q24H [facility] Last Admin: 12/21/17 14:15 Dose: 250 mls/hr Insulin Human Lispro (Humalog*) 0 units SUBCUT ACHS [facility] PRN Reason: Protocol Last Admin: 12/22/17 08:49 Dose: 1 units Methylprednisolone Sodium Succinate (Solu-Medrol 40 Mg) 40 mg IV Q8H [facility] Last Admin: 12/22/17 05:15 Dose: 40 mg Mometasone Furoate/Formoterol Fumar (Dulera 200/5 Mdi*) 2 puff INH BID [facility] Nicotine (Nicotine Inhaler*) 10 mg INH Q2H PRN PRN Reason: CRAVING Last Admin: 12/21/17 14:19 Dose: 10 mg Vital Signs - 8 hr 12/22/17 12/22/17 12/22/17 07:39 07:43 07:55 Temperature 97.6 F Pulse Rate 52 61 Respiratory 24 20 18 Rate Blood Pressure 142/56 (mmHg) O2 Sat by Pulse 94 93 Oximetry Oxygen Devices in Use Now: Nasal Cannula Appearance: 67 yo F in nAD, AAOx3 Eyes: No Scleral Icterus, PERRLA Ears/Nose/Mouth/Throat: NL Teeth, Lips, Gums, Mucous Membranes Moist Neck: NL Appearance and Movements; NL JVP, Trachea Midline Respiratory: Symmetrical Chest Expansion and Respiratory Effort, - - faint wheezes at b/l lower lungs Cardiovascular: NL Sounds; No Murmurs; No JVD, RRR Abdominal: NL Sounds; No Tenderness; No Distention, No Hepatosplenomegaly Lymphatic: No Cervical Adenopathy Extremities: No Edema, No Clubbing, Cyanosis Skin: No Rash or Ulcers, No Nodules or Sclerosis Neurological: Alert and Oriented x 3, NL Muscle Strength and Tone Result Diagrams: 12/22/17 06:27 12/22/17 06:27 Additional Lab and Data: Lab Results 12/20/17 12/20/17 12/20/17 Range/Units 13:04 13:04 13:04 WBC 9.3 (3.5-10.8) 10^3/ul RBC 4.36 (4.0-5.4) 10^6/ul Hgb 14.2 (12.0-16.0) g/dl Hct 41 (35-47) % MCV 94 (80-97) fL MCH 33 H (27-31) pg MCHC 34 (31-36) g/dl RDW 15 (10.5-15) % Plt Count 173 (150-450) 10^3/ul MPV 9.4 (7.4-10.4) um3 Neut % (Auto) 88.6 H (38-83) % Lymph % (Auto) 9.1 L (25-47) % [place] % (Auto) 2.1 (0-7) % Eos % (Auto) 0 (0-6) % Baso % (Auto) 0.2 (0-2) % Absolute Neuts (auto) 8.2 H (1.5-7.7) 10^3/ul Absolute Lymphs (auto) 0.8 L (1.0-4.8) 10^3/ul Absolute Monos (auto) 0.2 (0-0.8) 10^3/ul Absolute Eos (auto) 0 (0-0.6) 10^3/ul Absolute Basos (auto) 0 (0-0.2) 10^3/ul Absolute Nucleated RBC 0 10^3/ul Nucleated RBC % 0 INR (Anticoag Therapy) 0.93 (0.77-1.02) APTT 34.7 (26.0-36.3) seconds D-Dimer, Quantitative < 200 (Less Than 230) ng/mL VBG pH (7.33-7.43) VBG pCO2 (41-51) mmHg VBG pO2 (35-45) mmHg VBG HCO3 (24-28) mmol/L VBG O2 Saturation (70-80) % VBG Base Excess (0-4) Sodium 144 (139-145) mmol/L Potassium 3.8 (3.5-5.0) mmol/L Chloride 107 (101-111) mmol/L Carbon Dioxide 28 (22-32) mmol/L Anion Gap 9 (2-11) mmol/L BUN 11 (6-24) mg/dL Creatinine 0.71 (0.51-0.95) mg/dL Est GFR ( Amer) 105.9 (>60) Est GFR (Non-Af Amer) 82.4 (>60) BUN/Creatinine Ratio 15.5 (8-20) Glucose 123 H (70-100) mg/dL Lactic Acid (0.5-2.0) mmol/L Calcium 9.2 (8.6-10.3) mg/dL Magnesium 1.8 L (1.9-2.7) mg/dL Total Bilirubin 0.60 (0.2-1.0) mg/dL AST 19 (13-39) U/L ALT 20 (7-52) U/L Alkaline Phosphatase 70 (34-104) U/L Troponin I 0.00 (<0.04) ng/mL C-Reactive Protein 3.99 (< 5.00) mg/L B-Natriuretic Peptide ( - 100) pg/mL Total Protein 7.0 (6.4-8.9) g/dL Albumin 4.2 (3.2-5.2) g/dL Globulin 2.8 (2-4) g/dL Albumin/Globulin Ratio 1.5 (1-3) Lipase 12 (11.0-82.0) U/L Procalcitonin (<0.6) ng/mL 12/20/17 12/20/17 12/20/17 Range/Units 13:04 13:04 13:04 WBC (3.5-10.8) 10^3/ul RBC (4.0-5.4) 10^6/ul Hgb (12.0-16.0) g/dl Hct (35-47) % MCV (80-97) fL MCH (27-31) pg MCHC (31-36) g/dl RDW (10.5-15) % Plt Count (150-450) 10^3/ul MPV (7.4-10.4) um3 Neut % (Auto) (38-83) % Lymph % (Auto) (25-47) % [place] % (Auto) (0-7) % Eos % (Auto) (0-6) % Baso % (Auto) (0-2) % Absolute Neuts (auto) (1.5-7.7) 10^3/ul Absolute Lymphs (auto) (1.0-4.8) 10^3/ul Absolute Monos (auto) (0-0.8) 10^3/ul Absolute Eos (auto) (0-0.6) 10^3/ul Absolute Basos (auto) (0-0.2) 10^3/ul Absolute Nucleated RBC 10^3/ul Nucleated RBC % INR (Anticoag Therapy) (0.77-1.02) APTT (26.0-36.3) seconds D-Dimer, Quantitative (Less Than 230) ng/mL VBG pH (7.33-7.43) VBG pCO2 (41-51) mmHg VBG pO2 (35-45) mmHg VBG HCO3 (24-28) mmol/L VBG O2 Saturation (70-80) % VBG Base Excess (0-4) Sodium (139-145) mmol/L Potassium (3.5-5.0) mmol/L Chloride (101-111) mmol/L Carbon Dioxide (22-32) mmol/L Anion Gap (2-11) mmol/L BUN (6-24) mg/dL Creatinine (0.51-0.95) mg/dL Est GFR ( Amer) (>60) Est GFR (Non-Af Amer) (>60) BUN/Creatinine Ratio (8-20) Glucose (70-100) mg/dL Lactic Acid 1.3 (0.5-2.0) mmol/L Calcium (8.6-10.3) mg/dL Magnesium (1.9-2.7) mg/dL Total Bilirubin (0.2-1.0) mg/dL AST (13-39) U/L ALT (7-52) U/L Alkaline Phosphatase (34-104) U/L Troponin I (<0.04) ng/mL C-Reactive Protein (< 5.00) mg/L B-Natriuretic Peptide 82 ( - 100) pg/mL Total Protein (6.4-8.9) g/dL Albumin (3.2-5.2) g/dL Globulin (2-4) g/dL Albumin/Globulin Ratio (1-3) Lipase (11.0-82.0) U/L Procalcitonin < 0.1 (<0.6) ng/mL 12/20/17 Range/Units 13:07 WBC (3.5-10.8) 10^3/ul RBC (4.0-5.4) 10^6/ul Hgb (12.0-16.0) g/dl Hct (35-47) % MCV (80-97) fL MCH (27-31) pg MCHC (31-36) g/dl RDW (10.5-15) % Plt Count (150-450) 10^3/ul MPV (7.4-10.4) um3 Neut % (Auto) (38-83) % Lymph % (Auto) (25-47) % [place] % (Auto) (0-7) % Eos % (Auto) (0-6) % Baso % (Auto) (0-2) % Absolute Neuts (auto) (1.5-7.7) 10^3/ul Absolute Lymphs (auto) (1.0-4.8) 10^3/ul Absolute Monos (auto) (0-0.8) 10^3/ul Absolute Eos (auto) (0-0.6) 10^3/ul Absolute Basos (auto) (0-0.2) 10^3/ul Absolute Nucleated RBC 10^3/ul Nucleated RBC % INR (Anticoag Therapy) (0.77-1.02) APTT (26.0-36.3) seconds D-Dimer, Quantitative (Less Than 230) ng/mL VBG pH 7.35 (7.33-7.43) VBG pCO2 52 H (41-51) mmHg VBG pO2 26 L (35-45) mmHg VBG HCO3 25.2 (24-28) mmol/L VBG O2 Saturation 57.8 L (70-80) % VBG Base Excess 2.0 (0-4) Sodium (139-145) mmol/L Potassium (3.5-5.0) mmol/L Chloride (101-111) mmol/L Carbon Dioxide (22-32) mmol/L Anion Gap (2-11) mmol/L BUN (6-24) mg/dL Creatinine (0.51-0.95) mg/dL Est GFR ( Amer) (>60) Est GFR (Non-Af Amer) (>60) BUN/Creatinine Ratio (8-20) Glucose (70-100) mg/dL Lactic Acid (0.5-2.0) mmol/L Calcium (8.6-10.3) mg/dL Magnesium (1.9-2.7) mg/dL Total Bilirubin (0.2-1.0) mg/dL AST (13-39) U/L ALT (7-52) U/L Alkaline Phosphatase (34-104) U/L Troponin I (<0.04) ng/mL C-Reactive Protein (< 5.00) mg/L B-Natriuretic Peptide ( - 100) pg/mL Total Protein (6.4-8.9) g/dL Albumin (3.2-5.2) g/dL Globulin (2-4) g/dL Albumin/Globulin Ratio (1-3) Lipase (11.0-82.0) U/L Procalcitonin (<0.6) ng/mL Assess/Plan/Problems-Billing Assessment: 67 yo F with h/o DM, COPD presents with exacerbation of COPD - Patient Problems (1) COPD exacerbation Comment: feeling better, will switch to PO prednisone. Start dulera, cont Azithro for anti-inflammatory properties. suspect can go home tomorrow (2) DM type 2 (diabetes mellitus, type 2) Comment: cont ISS, holding metformin. (3) DVT (deep venous thrombosis) Comment: HSQ Status and Disposition: inpatient
[2017-12-22] MEDS: Mometasone/Formoter 200/5 MDI INH SCH ×2 (13:21→20:33)
[2017-12-22] MEDS: Azithromycin IV(*) 500 MG in NS 0.9% 250 ML* 250 ML IVPB SCH (13:46)
[2017-12-22] MEDS: Gabapentin CAP(*) 100 MG PO SCH (20:22)
[2017-12-22] MEDS ORDERED: predniSONE TAB* 20 MG PO SCH (21:00)
[2017-12-23] MEDS: Heparin VIAL(*) 5000 UNITS/ML VIAL (FIVE THOUSAND) SUBCUT SCH (05:26)
[2017-12-23] MEDS: Mometasone/Formoter 200/5 MDI INH SCH (07:47)
[2017-12-23] MEDS: Insulin LISPRO* 1 UNITS UNIT SUBCUT SCH ×2 (07:51→12:17)
[2017-12-23] MEDS: Aspirin EC TAB* 81 MG TAB.EC PO SCH (08:00)
[2017-12-23] MEDS: Atorvastatin* 20 MG TAB PO SCH (08:00)
[2017-12-23] MEDS: guaiFENesin ER TAB 600 MG PO SCH (08:01)
[2017-12-23] MEDS: Docusate CAP* 100 MG PO SCH (08:01)
[2017-12-23] MEDS ORDERED: predniSONE TAB* 20 MG PO SCH (09:00)
[2017-12-23 13:12] VITALS: BP 122/48
--- NOTE | 2017-12-24 06:07 | DS ---
CC: Taylor Smith NP * DISCHARGE SUMMARY: DATE OF ADMISSION: 12/20/17 DATE OF DISCHARGE: 12/23/17 PRIMARY CARE PROVIDER: Taylor Smith NP DISCHARGE DIAGNOSES: 1. Acute hypoxemic respiratory failure due to chronic obstructive pulmonary disease exacerbation. 2. Bronchitis/laryngitis, suspect viral. SECONDARY DIAGNOSES: 1. History of diabetes, type 2. 2. History of smoking. 3. History of dyslipidemia. 4. History of chronic obstructive pulmonary disease, not oxygen dependant. 5. Tonsillectomy. MEDICATIONS AT DISCHARGE: Include: 1. Prednisone 40 mg for 2 days, then 20 mg for 2 days, then 10 mg for 2 days, then stop. 2. DuoNeb every 4 hours p.r.n. 3. Aspirin 81 mg daily. 4. Lipitor 20 mg daily. 5. Azithromycin 250 mg daily for 2 days, then stop. 6. Tessalon 100 mg b.i.d. p.r.n. 7. Neurontin 200 mg at night p.r.n. 8. Metformin 500 mg b.i.d. 9. Dulera 200/5 two inhalations b.i.d. LABORATORY DATA AND STUDIES PERFORMED DURING HOSPITAL STAY: Included: On 12/22: White blood cell count of 11.7, hemoglobin of 12.8, hematocrit of 30, and platelets of 187. At admission, D-dimer was below 200. At admission, the patient's ABG showed pH of 7.35, PCO2 of 52, PO2 of 26, and bicarb of 25. On , sodium of 141, potassium 4.5, chloride 108, carbon dioxide 28, BUN 20, creatinine 0.71. At admission, the patient's C-reactive protein was 3.99. Procalcitonin was below 0.1. Portable chest x-ray, impression: "No radiographic evidence of acute cardiopulmonary abnormality on this portable chest x-ray." HOSPITALIZATION COURSE: Ms. Quiles is a 67-year-old female with history of smoking, who presented with shortness of breath and hypoxemia. The patient was diagnosed with COPD exacerbation and placed on steroids and azithromycin. Despite her procalcitonin was unremarkable, we used azithromycin for anti- inflammatory properties. The patient also appeared to have laryngitis and likely her COPD exacerbation was precipitated by viral illness. The patient also had symptoms of laryngitis with sore throat and a coarse voice. The patient did well over the course of her hospital stay and she was significantly hypoxemic that resolved by the time of discharge; she is on room air. At discharge, she was started on Dulera. The patient stated that used an oral inhaler in the past but it was too expensive for her. She also was prescribed DuoNeb nebulizers on a p.r.n. basis . The patient was counseled multiple times about smoking cessation and is hopeful that she will not restart smoking at the time of discharge. PHYSICAL EXAM AT THE TIME OF DISCHARGE: Blood pressure of 132/48, heart rate of 59 and regular, respiratory rate 18, oxygen saturation 91% on room air, temperature 98.86. General: The patient is a very pleasant 67-year-old female , who is in no acute distress, alert, awake, and oriented x3. HEENT: Head atraumatic, normocephalic. Eyes: Pupils are equal, round, and reactive to light and accommodation. Oropharynx clear. Mucosa moist. Neck: Supple. No JVD. No bruits bilaterally. Cardiovascular: Regular rate and rhythm with no murmur. Respiratory: The patient has coarse rhonchi in bilateral upper lobes with scant wheezes in left mid lobe. Abdomen: Soft, nontender. Bowel sounds are present in all 4 quadrants. Extremities: There is no edema. Pulses +2 bilaterally. There is no clubbing or cyanosis. Please note that this is a short summary of the patient's hospitalization. Please refer to further medical records for details. [id number]/CPS #: [id number] MTDD
== END 2017-12-23 13:35 | disposition home or self-care (01) | DRG 189 ==
LOC: ED 12:32 → MED 16:14 → OBSVTOIN 12-21 13:18
PROVIDERS: ADMIT Internal Medicine; ATTEND Internal Medicine
DX: J96.01 Acute respiratory failure with hypoxia (principal); J44.1 Chronic obstructive pulmonary disease with (acute) exacerbation; J44.0 Chronic obstructive pulmonary disease with (acute) lower respiratory infection; J20.9 Acute bronchitis, unspecified; J04.0 Acute laryngitis; E11.9 Type 2 diabetes mellitus without complications; E78.5 Hyperlipidemia, unspecified; F17.210 Nicotine dependence, cigarettes, uncomplicated; Z79.84 Long term (current) use of oral hypoglycemic drugs; Z79.82 Long term (current) use of aspirin; Z79.52 Long term (current) use of systemic steroids; Z79.899 Other long term (current) drug therapy; Z88.2 Allergy status to sulfonamides
CPT/HCPCS: 36415; 71045; 80048; 80053; 82803; 83605; 83690; 83735; 83880; 84145; 84484; 85025; 85379; 85610; 85730; 86140; 87040; 93005; 94640; 99202; 99285; 99406; A9270-GY; G0378; G0463; J0456; J0696; J1644; J2920; J2930; J7512

== ENCOUNTER 2018-09-01 16:26 | Emergency (ER) | payer MEDICARE ==
[2018-09-01 17:11] VITALS: BP 128/71
--- NOTE | 2018-09-01 17:48 | UC ---
Ear Complaint HPI - HPI Summary HPI Summary: 67 y/o female presents to the urgent care c/o B/L ear pain for the past 3 days. Pt reports Hx of recurrent ear infections since she has Hx of DM type II w/ recurrent ear infections. She has seen an ENT at [place] last year and was told she has perforated Rt TM. Pt states RT ear had yellowish drainage yesterday. Ear pain is 6/10 w/ decrease hearing. Pt denies fever, dizziness, SOB, chest pain, abdominal pain, N/V/D, tinnitus. - History of Current Complaint Chief Complaint: UCEar Stated Complaint: EAR ACHE Time Seen by Provider: 09/01/18 17:18 Hx Obtained From: Patient Onset/Duration: Gradual Onset, Lasting Days - 3 days, Still Present, Worse Since - yesterday Severity Initially: Mild Severity Currently: Moderate Pain Intensity: 6 Pain Scale Used: 0-10 Numeric Aggravating Factors: Other - drainage Alleviating Factors: OTC Meds Associated Signs/Symptoms: Positive: Hearing Loss, URI Symptoms - Allergies/Home Medications Allergies/Adverse Reactions: Allergies Allergy/AdvReac Type Severity Reaction Status Date / Time Sulfa (Sulfonamide Allergy Intermediate Swelling Verified 09/01/18 17:11 Antibiotics) Home Medications: Home Medications Decongestant* PRN 09/01/18 [History] Trivesta Inhaler* .ROUTE DAILY 09/01/18 [History] PMH/Surg Hx/FS Hx/Imm Hx Previously Healthy: Yes Endocrine History: Diabetes, Dyslipidemia Respiratory History: Asthma - Surgical History Surgical History: Yes Surgery Procedure, Year, and Place: Tonsillectomy (1961) tympanoplasty with - Family History Known Family History: Positive: Cardiac Disease, Diabetes Negative: Hypertension - Social History Occupation: Retired Alcohol Use: Rare Substance Use Type: None Smoking Status (MU): Former Smoker Have You Smoked in the Last Year: Yes - Immunization History Most Recent Influenza Vaccination: Fall 2016 Most Recent Tetanus Shot: UNK Most Recent Pneumonia Vaccination: Summer 2016 Review of Systems All Other Systems Reviewed And Are Negative: Yes Constitutional: Positive: Negative Skin: Positive: Negative Eyes: Positive: Negative ENT: Positive: Ear Ache - B/L ear pain w/ RT ear yellowish drainage, Nasal Discharge - clear Respiratory: Positive: Negative Cardiovascular: Positive: Negative Gastrointestinal: Positive: Negative Genitourinary: Positive: Negative Motor: Positive: Negative Neurovascular: Positive: Negative Musculoskeletal: Positive: Negative Neurological: Positive: Negative Psychological: Positive: Negative Is Patient Immunocompromised?: No Physical Exam - Summary Physical Exam Summary: Vital signs: reviewed General: well developed, well nourished obese female sitting in the examining table w/o any apparent distress Skin: [place], warm and dry, no evidence of atopic dermatitis, psoriasis, seborrhea. HEENT: -Head: atraumatic, non tender; no scalp dermatitis. -Eyes: sclera and conjunctiva clear, PERRLA, EOMI -Ears: no pre- or postauricular lymphadenopathy or erythema; RT external ear canal clear, RT TM injected w/ erythema and moderate yellowish drainage, LF external ear canal clear and LF TM injected w/ erythema and yellowish and bloody drainage w/ TM perforation. -Nose/Face: erythematous and edematous nasal mucosa with clear rhinorrhea, no frontal or maxillary sinus tender to palpation. -Mouth/Throat: Mucous membrane moist, posterior pharynx clear, no erythema or exudates. Neck: supple, FROM, nontender, no lymphadenopathy, no meningismus. Chest: Clear to auscultation, normal breath sounds Abd: soft, Bowel sounds active, Nontender. Back: no spinal or CVAT Neuro: A&O x4, GCS 15, no focal neuro deficits, normal behavior for age. Triage Information Reviewed: Yes Vital Signs: Initial Vital Signs Temp 98.9 F 09/01/18 17:07 Pulse 70 09/01/18 17:07 Resp 18 09/01/18 17:07 BP 128/71 09/01/18 17:07 Pulse Ox 94 09/01/18 17:07 Ear Complaint Course/Dx - Course Course Of Treatment: 67 y/o female presents to the urgent care c/o B/L ear pain for the past 3 days. Pt reports Hx of recurrent ear infections since she has Hx of DM type II w/ recurrent ear infections. She has seen an ENT at [place] last year and was told she has perforated Rt TM. Pt states RT ear had yellowish drainage yesterday. Ear pain is 6/10 w/ decrease hearing. Pt denies fever, dizziness, SOB, chest pain, abdominal pain, N/V/D, tinnitus. Hx obtained. Pt w/ B/L otitis media w/ left perforated TM on examination. Pt Rx Amoxicillin PO and advised to f/u w/ ENT Dr Singer or her ENT for further evaluation and treatment. D/C instructions explained. Pt understood and agreed w/ plan of care. - Differential Dx/Diagnosis Differential Diagnosis/HQI/PQRI: Cerumen Impaction, Otitis Externa, Otitis Media , URI Provider Diagnosis: Bilateral otitis media with spontaneous rupture of eardrum Discharge - Sign-Out/Discharge Documenting (check all that apply): Patient Departure - D/C home All imaging exams completed and their final reports reviewed: No Studies - Discharge Plan Condition: Stable Disposition: HOME Prescriptions: Amoxicillin PO (*) [Amoxicillin 875 MG (*)] 875 mg PO BID #20 tab Patient Education Materials: Ear Infection (ED) Referrals: Taylor Smith [Primary Care Provider] - 3 Days Devang Singer MD [Medical Doctor] - 3 Days Additional Instructions: 1-Please take the full course of the antibiotic to avoid resistance. 2-Please take ibuprofen PO q6-8hrs prn as instructed after meals to alleviate pain and swelling. Increase fluid intake, eat well, rest and avoid strenuous exercise 3-Please f/u w/ your ENT or ENT DR Singer in 2-3 days for further evaluation and making sure infection is improving due to your recurrent ear infections. - Billing Disposition and Condition Condition: STABLE Disposition: Home
== END 2018-09-01 18:00 | disposition home or self-care (01) ==
LOC: UCEAST 16:26
DX: H66.93 Otitis media, unspecified, bilateral (principal); H72.93 Unspecified perforation of tympanic membrane, bilateral; E11.9 Type 2 diabetes mellitus without complications; Z88.1 Allergy status to other antibiotic agents; Z87.891 Personal history of nicotine dependence
CPT/HCPCS: 99212; G0463

== ENCOUNTER 2020-12-15 12:45 | Inpatient (IN) ==
[2020-12-15 14:52] LABS: ABS Eosinophils 0.1 10^3/ul (0-0.6); ABS Lymphocytes 1.2 10^3/ul (1.0-4.8); ABS Monocytes 0.4 10^3/ul (0-0.8); ABS Neutrophils 5.2 10^3/ul (1.5-7.7); Hematocrit 43 % (35-47); Hemoglobin 14.7 g/dL (12.0-16.0); Lymphocyte % 17.1 %; Mean Corpuscular HGB Conc 34 g/dL (31-36); Mean Corpuscular Hemoglobin 32 pg (27-31); Mean Corpuscular Volume 92 fL (80-97); Mean Platelet Volume 9.8 fL (7.4-10.4); Platelet Count 163 10^3/uL (150-450); Red Blood Count 4.64 10^6 /uL (3.70-4.87); Red Cell Distribution Width 14 % (10-15); White Blood Count 6.8 10^3/uL (3.5-10.8)
[2020-12-15 15:05] LABS: Influenza A Molecular Negative (Negative); Influenza B Molecular Negative (Negative)
[2020-12-15 15:11] LABS: Albumin 4.1 g/dL (3.2-5.2); Albumin/Globulin Ratio 1.5 (1-3); C Reactive Protein 6.67 mg/L (<8.01); EGFR African American 95.6 (>60); Globulin 2.8 g/dL (2-4); Total Bilirubin 0.5 mg/dL (0.2-1.0); Total Protein 6.9 g/dL (6.4-8.9)
[2020-12-15 15:12] LABS: Troponin I 0.01 ng/mL (<0.03)
[2020-12-15 15:18] LABS: Urine Appearance Clear; Urine Bilirubin Negative (Negative); Urine Blood Negative (Negative); Urine Color Straw; Urine Glucose Negative (Negative); Urine Ketones Negative (Negative); Urine Nitrite Negative (Negative); Urine Protein Negative (Negative); Urine Specific Gravity 1.005 (1.002-1.030); Urine Urobilinogen Negative (Negative)
[2020-12-15 15:37] LABS: Ferritin 25.6 ng/mL (11-307)
[2020-12-15 15:41] LABS: INR 1.02 (0.82-1.09)
[2020-12-15] MEDS ORDERED: methylPREDNISolone 125 mg 2 ML VIAL IV ONE (16:51)
[2020-12-15] MEDS ORDERED: Albuterol HFA INHALER 8 gm MDI INH ONE (17:01)
[2020-12-15] MEDS ORDERED: Dextrose 50% Syringe 50 ml 25 GM/50 ML SYRINGE IV PUSH PRN (17:37)
[2020-12-15] MEDS: Enoxaparin 40 MG/0.4 ML SYR SUBCUT SCH (21:52)
[2020-12-15] MEDS: Albuterol HFA INHALER 8 gm MDI INH SCH (23:54)
[2020-12-16] MEDS: Albuterol HFA INHALER 8 gm MDI INH SCH ×2 (02:41→07:48)
[2020-12-16 05:48] LABS: ABS Lymphocytes 0.6 10^3/ul (1.0-4.8); ABS Monocytes 0.1 10^3/ul (0-0.8); ABS Neutrophils 6.7 10^3/ul (1.5-7.7); Hematocrit 44 % (35-47); Hemoglobin 14.7 g/dL (12.0-16.0); Lymphocyte % 8.5 %; Mean Corpuscular HGB Conc 33 g/dL (31-36); Mean Corpuscular Hemoglobin 31 pg (27-31); Mean Corpuscular Volume 93 fL (80-97); Mean Platelet Volume 9.8 fL (7.4-10.4); Nucleated Red Blood Cells % 0.1; Platelet Count 180 10^3/uL (150-450); Red Blood Count 4.73 10^6 /uL (3.70-4.87); Red Cell Distribution Width 14 % (10-15); White Blood Count 7.4 10^3/uL (3.5-10.8)
[2020-12-16 06:05] LABS: C Reactive Protein 8.41 mg/L (<8.01); Calcium 9.2 mg/dL (8.6-10.3); EGFR African American 88.6 (>60); EGFR Non-African American 73.2 (>60); Potassium 3.9 mmol/L (3.5-5.0)
[2020-12-16] MEDS: Fluticasone NASAL SPRAY 50MCG 16 gm SPRAY BTL INTRANASAL SCH (08:39)
[2020-12-16] MEDS: Aspirin EC 81 mg TAB.EC (enteric coated) PO SCH (08:39)
[2020-12-16] MEDS: Albuterol/Ipratropium NEB.SOL (2.5/0.5 MG) 3 ML NEB.SOLN INH SCH ×4 (10:53→22:52)
[2020-12-16] MEDS: Enoxaparin 40 MG/0.4 ML SYR SUBCUT SCH (17:27)
[2020-12-17] MEDS: Albuterol/Ipratropium NEB.SOL (2.5/0.5 MG) 3 ML NEB.SOLN INH SCH ×6 (03:00→23:03)
[2020-12-17] MEDS: Fluticasone NASAL SPRAY 50MCG 16 gm SPRAY BTL INTRANASAL SCH (07:41)
[2020-12-17] MEDS: Aspirin EC 81 mg TAB.EC (enteric coated) PO SCH (07:41)
[2020-12-17] MEDS: Enoxaparin 40 MG/0.4 ML SYR SUBCUT SCH (17:37)
[2020-12-18] MEDS: Albuterol/Ipratropium NEB.SOL (2.5/0.5 MG) 3 ML NEB.SOLN INH SCH ×6 (03:22→22:33)
[2020-12-18] MEDS: Fluticasone NASAL SPRAY 50MCG 16 gm SPRAY BTL INTRANASAL SCH (07:42)
[2020-12-18] MEDS: Aspirin EC 81 mg TAB.EC (enteric coated) PO SCH (07:43)
[2020-12-18] MEDS: Mometasone/Formoter 200/5 MDI INH SCH ×2 (10:10→19:23)
[2020-12-18] MEDS: Enoxaparin 40 MG/0.4 ML SYR SUBCUT SCH (17:24)
[2020-12-19] MEDS: Albuterol/Ipratropium NEB.SOL (2.5/0.5 MG) 3 ML NEB.SOLN INH SCH ×3 (02:57→10:25)
[2020-12-19] MEDS: Mometasone/Formoter 200/5 MDI INH SCH (07:06)
[2020-12-19] MEDS: Aspirin EC 81 mg TAB.EC (enteric coated) PO SCH (07:47)
[2020-12-19] MEDS: Fluticasone NASAL SPRAY 50MCG 16 gm SPRAY BTL INTRANASAL SCH (07:47)
[2020-12-19 09:42] VITALS: BP 115/63
[2020-12-19] MEDS ORDERED: Albuterol HFA INHALER 8 gm MDI INH PRN (09:55)
[2020-12-19] MEDS ORDERED: Albuterol 2.5mg/3 ml (0.083%) NEB.SOLN INH PRN (09:58)
== END 2020-12-19 13:28 | disposition home or self-care (01) | DRG 189 ==
LOC: MED 12:45 → ED 12:45 → MED 21:10
PROVIDERS: ADMIT Hospitalist; ATTEND Internal Medicine